=== PATIENT | male | born 2005 | race Caucasian/White ===

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

== ENCOUNTER 2024-06-06 19:00 | Emergency (ER) | payer MEDICAID, SELFPAY ==
[2024-06-06 19:16] VITALS: BP 149/92; PULSE 101; RESP 20; TEMP 37.3; O2SAT 100; BMI 23.2
--- NOTE | 2024-06-06 19:19 | EXP.UTC ---
Discharge Plan Disposition Patient Disposition: Home, Self-Care Condition: Good Prescriptions Prescriptions: New methylprednisolone [Medrol (Rodolfo)] 4 mg tablets,dose pack See Rx Instructions .Route .COMPLEX 6 Days Qty: 21 0RF Rx Instructions: taper pack; methocarbamol 500 mg tablet 500 mg PO TID PRN (Reason: muscle spasm) Qty: 12 0RF ibuprofen 600 mg tablet 600 mg PO Q6HP PRN (Reason: Moderate Pain) Qty: 20 0RF Referrals Follow up/Referrals: Joseluis Holloway [Primary Care Provider] - See instructions Activity Restrictions/Add. Instructions Additional Instructions/Restrictions: Start oral steriod pack tomorrow Take muscle relaxer as prescribed Follow up with your Family Doctor if no improvement or any worsening of symptoms Straight to ER if any life threatening symptoms Clinical Impressions Clinical Impression: Low back pain Qualifiers: Chronicity: acute Back pain laterality: left Sciatica presence: with sciatica Sciatica laterality: sciatica of left side Qualified Code(s): M54.42 - Lumbago with sciatica, left side Stand Alone Forms Stand Alone Forms: Work/School Release Instructions Patient Instructions: Low Back Pain, DI for Back Pain With Sciatica Print Language Print Language: Bel[place]ian Discharge ED Provider: Anika Hinkle [facility] General Stated complaint: lower back pain Mode of Arrival: Ambulatory Source of Information: Patient Time Seen by Provider: 06/06/24 19:19 Description of Symptoms (Recalled from Triage Doc. 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 States feels like he may have pulled something in his left side of his lower back States pain worse with movement and bending and radiates at times into his left hip area States it has been bothering him about a week and not got any better so today he came in to get it checked Denies loss of control of bowel or bladder Denies falling or known injury Related Data Previous Rx's ?Medication ?Instructions ?Recorded ibuprofen 600 mg tablet 600 mg PO Q6HP PRN Moderate Pain 06/06/24 #20 tabs methocarbamol 500 mg tablet 500 mg PO TID PRN muscle spasm #12 06/06/24 tabs methylprednisolone 4 mg tablets in See Rx Instructions .Route 06/06/24 a dose pack (Medrol (Rodolfo)) .COMPLEX 6 days #21 tabs Allergies Allergy/AdvReac Type Severity Reaction Status Date / Time No Known Allergies Allergy Verified 07/16/22 11:05 Worker's Comp Is this a Worker's Comp case?: No PFSH [facility] Disclaimer: The information contained in this section may have been updated after the patient was seen, as this information can be updated by other users. Social History (Updated 07/16/22 @ 21:56 by Chauncey Huggins APRN) Smoking Status: Never smoker alcohol intake: never current occupational status: student Travel in the last 8 weeks: None ROS Obtained: Yes All systems reviewed & no additional complaints except as documented and Yes Systems reviewed as appropriate & no additional complaints except as documented Constitutional Constitutional: Reports system reviewed and no additional complaints, except as documented and Reports as per HPI ENT Ears, Nose, Mouth, and Throat: Reports system reviewed and no additional complaints, except as documented and Reports as per HPI Cardiovascular Cardiovascular: Reports system reviewed and no additional complaints, except as documented and Reports as per HPI Respiratory Respiratory: Reports system reviewed and no additional complaints, except as documented and Reports as per HPI Gastrointestinal Gastrointestingal: Reports system reviewed and no additional complaints, except as documented and as per HPI; Denies abdominal pain Genitourinary Male Genitourinary: Reports system reviewed and no additional complaints, except as documented and Reports as per HPI Musculoskeletal Musculoskeletal: Reports system reviewed and no additional complaints, except as documented, Reports as per HPI and Reports back pain (left lower back paint that goes into left hip area worse with movement) Physical Exam General General appearance: alert and in no apparent distress Head Head exam: atraumatic, normocephalic and normal inspection Eye Eye exam: Present normal appearance, PERRL and EOMI ENT ENT exam: Present normal exam, normal oropharynx, mucous membranes moist and TM's normal bilaterally Respiratory Respiratory exam: Present normal lung sounds bilaterally; Absent respiratory distress or wheezes Cardiovascular Cardiovascular exam: Present regular rate, normal rhythm and normal heart sounds Abdominal Exam Abdominal exam: Present soft and normal bowel sounds; Absent distention or tenderness Back Exam Back exam: Present tenderness, muscle spasm and sciatic notch tenderness (L) Back 1 view image: 1. reports tightness, achy like pain that at times radiates into left hip/leg area denies loss of control of bowel or bladder Neurological Exam Neurological exam: Present alert, oriented X3 and normal gait Medical Decision Making [place] Inquiry Pt receiving controlled substance: No [place] was queried for this patient: No Vital Signs: 06/06/24 19:16 Temperature 99.1 F Temperature Source Oral Pulse Rate [Left Brachial] 101 H Respiratory Rate 20 Blood Pressure [Right Arm] 149/92 H Blood Pressure Mean [Right Arm] 111 02 Sat by Pulse Oximetry 100 Lab Data Lab results reviewed: Yes I reviewed the patient's lab results.
[2024-06-06 19:28] LABS: Apearance,Urine Clear (Clear); Blood, Urine Negative (Negative); Color,Urine Yellow (Yellow); Glucose,Urine (UA) NEG (Negative); Ketones,Urine NEG (Negative); Protein,Urine Negative (Negative); Specific Gravity, Urine 1.025 (1.005-1.030)
[2024-06-06 19:29] LABS: Bilirubin,Urine Negative (Negative); UTC Leukocyte Esterase,Urine Negative (Negative); UTC Nitrate,Urine Negative (Negative); Urobilinogen,Urine 0.2 EU/dl (0.2)
[2024-06-06] MEDS: KETOROLAC 60MG/2ML VIAL 60 MG IM (19:31)
[2024-06-06] MEDS: METHYLPREDNISOLONE SOD SUCC 125MG VIAL 125 MG IM (19:34)
[2024-06-06 19:41] VITALS: BP 142/92; PULSE 101; RESP 20; TEMP 37.3
== END 2024-06-06 19:51 | disposition home or self-care (01) ==
PROVIDERS: Emergency Provider Nurse Practitioner; PCP Pediatrics
DX: M54.42 Lumbago with sciatica, left side (principal)
CPT/HCPCS: 81003; 96372; 99212; 99214; G0463; J1885; J2919